=== PATIENT | female | born 1930 | race Caucasian/White ===

== ENCOUNTER 2019-03-19 16:30 | Emergency (ER) | payer OTHER, MEDICAID ==
[~2019-03-19] VITALS: Ht 157.5 cm; Wt 66.7 kg
[~2019-03-19 16:30] MED LIST: COL100 PO; HEP5I SC; NORCO1 TA2 PO; SYN25 PO; TOP50 PO; TYL325 PO; ZES10 PO
[2019-03-19 16:32] VITALS: Ht 157.5 cm; Wt 66.7 kg
[2019-03-19 21:41] LABS: BASOPHIL % 0.7 % (0-2); PLATELET COUNT 262 x10^3mcL (130-400); RED CELL DISTRIBUTION WIDTH 13.6 % (11.5-14.5)
[2019-03-19 21:42] LABS: UA SPECIFIC GRAVITY 1.025 (1.005-1.035); microscopic required? YES; urine erythrocyte 2+ (NEGATIVE)
[2019-03-19 21:54] LABS: CALCIUM 8.9 mg/dL (8.5-10.1); CHLORIDE SERUM 103 mmol/L (98-107); CREATININE SERUM 0.9 mg/dL (0.6-1.0); GLUCOSE SERUM 102 mg/dL (74-106); POTASSIUM SERUM 3.8 mmol/L (3.5-5.1); SODIUM SERUM 138 mmol/L (136-145)
[2019-03-19 21:58] LABS: ALBUMIN 3.7 g/dL (3.4-5.0); ALKALINE PHOSPHATASE 103 U/L (46-116); ALT/SGPT 22 U/L (14-59); AST/SGOT 21 U/L (15-37); BILIRUBIN TOTAL 0.39 mg/dL (0.20-1.00); LIPASE 81 IU/L (73-393); TOTAL PROTEIN, SERUM 7.6 g/dL (6.4-8.2)
[2019-03-20 00:20] VITALS: BP 142/51
== END 2019-03-20 00:58 | disposition home or self-care (01) ==
LOC: ED 16:30
PROVIDERS: Emergency Medicine
DX: E86.0 Dehydration (principal); R53.1 Weakness; R42 Dizziness and giddiness; I10 Essential (primary) hypertension; F32.9 Major depressive disorder, single episode, unspecified; E03.9 Hypothyroidism, unspecified; Z96.651 Presence of right artificial knee joint
CPT/HCPCS: J7030; Q0092

== ENCOUNTER 2019-11-08 05:41 | Inpatient (IN) | payer OTHER ==
[~2019-11-08] VITALS: Ht 160 cm; Wt 67.8 kg
[2019-11-08 05:48] VITALS: Ht 160 cm; Wt 67.8 kg
[2019-11-08 06:50] LABS: microscopic required? YES; urine erythrocyte 2+ (NEGATIVE)
[2019-11-08 06:54] LABS: BASOPHIL % 0.6 % (0-2); PLATELET COUNT 239 x10^3mcL (130-400); RED CELL DISTRIBUTION WIDTH 13.8 % (11.5-14.5)
[2019-11-08 07:29] LABS: CHLORIDE SERUM 107 mmol/L (98-107); CREATININE SERUM 0.8 mg/dL (0.6-1.0); GLUCOSE SERUM 103 mg/dL (74-106); POTASSIUM SERUM 4.2 mmol/L (3.5-5.1); SODIUM SERUM 142 mmol/L (136-145)
[2019-11-08 07:32] LABS: ALBUMIN 3.6 g/dL (3.4-5.0); ALKALINE PHOSPHATASE 90 U/L (46-116); ALT/SGPT 20 U/L (14-59); AST/SGOT 18 U/L (15-37); BILIRUBIN TOTAL 0.5 mg/dL (0.20-1.00); LIPASE 58 IU/L (73-393); TOTAL PROTEIN, SERUM 7.6 g/dL (6.4-8.2)
--- NOTE | 2019-11-08 08:01 | NUR ---
PT TAKEN TO CT AT THIS TIME VIA SURAJ
--- NOTE | 2019-11-08 08:23 | NUR ---
RECEIVED REPORT FROM BAUDILIO RAMOS. PT IN CT AT THIS TIME
--- NOTE | 2019-11-08 08:37 | NUR ---
LAB AT BEDSIDE
--- NOTE | 2019-11-08 08:42 | NUR ---
PT AAOX4; BREATHING E/U. NAD NOTED. SON IS AT BEDSIDE
--- NOTE | 2019-11-08 09:49 | NUR ---
DR KOLB AT BEDSIDE FOR EVAL
--- NOTE | 2019-11-08 10:50 | NUR ---
IVF INFUSING ORDERED
--- NOTE | 2019-11-08 11:39 | NUR ---
REPORT GIVEN TO ABDI
[2019-11-08] MEDS ORDERED: CITALOPRAM HYDR40 M1 PO (12:25)
[2019-11-08] MEDS ORDERED: GOOD SENSE ASPI81 M3 PO (12:25)
[2019-11-08] MEDS ORDERED: LISINOPRIL10 MG (12:25)
[2019-11-08] MEDS ORDERED: LIPI10 PO (12:25)
[2019-11-08] MEDS ORDERED: AMLODIPINE BESYL5 M2 PO (12:25)
--- NOTE | 2019-11-08 13:00 | NUR ---
RECEIVED FROM ER AWAKE, ALERT AND ORIENTED. ROBINSON TAYLOR BUT ABLE TO COMMUNICATE. [place] ISLANDER SPEAKING ONLY, FAMILY AT BEDSIDE ASSISTING WITH TRANSLATION. PT RECEIVED IN NO ACUTE RESP. DISTRESS. BP ELEVTED, 187/81 AND IN PAIN 05/26. NR DOMINGO MUTUC AT BEDSUIDE AND AWARE OF ELEVETED BP. WILL MEDICATE FOR PAIN ORDERED. PT CAME IN WITH C/O ABD, PAIN WITH DYSURIA.PT ORIENTED TO ROOM, CALL LIGHT WITHIN REACH AND PT INSTRUCTED TO CALL FOR ASSISTANCE NEEDED. IVF INFUSING WELL AND SITE CLEAR. WILL CONTINUE WITH PLAN OF CARE.
[2019-11-08 13:12] VITALS: BP 187/81
--- NOTE | 2019-11-08 13:51 | NUR ---
PT C/O ABD. PAIN 08/26. MEDICATED WITH TORADOL IVP PER ORDER.
[2019-11-08 17:04] VITALS: BP 132/50
--- NOTE | 2019-11-08 18:27 | NUR ---
REMAINS IN NO DISTRESS. AWAKE AND ALERT. KELLI. WELL WITH CLEAR LIQ. DIET, NO C/O N/V NOR ABD. DISCOMFORT.VS REMAINS WNL. IVF INFUSING WELL AND SITE CLEAR. CALL LIGHT WITHIN REACH. WILL BE ENDORSED TO INCOMING SHIFT.
--- NOTE | 2019-11-08 19:54 | NUR ---
RECEIVED PATIENT IN BED AWAKE, ALERT AND ORIENTED WITH NO C/O ABDOMINAL PAIN AT THIS TIME, PATIENT MEDICATED EARLIER FOR PAIN BY AM SHIFT. SON AT BEDSIDE. RESPIRATION EVEN AND NONLABOR SATTING AT 98% RA. ABDOMEN ROUND, OBESE AND NONTENDER WITH ACTIVE BS. INSTRUCTION ON NPO PROVIDED AND PATIENT VERBALIZED UNDERSTANDING. WILL CONTINUE TO MONITOR.
--- NOTE | 2019-11-08 20:10 | NUR ---
CONSENT FOR SURGERY SIGNED BY SON, INSTRUCTION ON NPO PROVIDED TO PATIENT AND PATIENT VERBALIZED UNDERSTANDING.
[2019-11-08 20:25] VITALS: BP 120/61
--- NOTE | 2019-11-08 23:32 | NUR ---
APPEAR TO BE SLEEPING THIS TIME BREATHING EASY AND NONLABOR. WILL CONTINUE TO MONITOR.
--- NOTE | 2019-11-09 05:14 | NUR ---
CHECKED AT INTERVALS FOR NEEDS AND SAFETY. KEPT ON NPO. HAD BM X2 SOFT IN LARGE AMOUNT. ALL NEEDS ATTENDED.
[2019-11-09 05:35] VITALS: BP 130/88
[2019-11-09 06:29] LABS: CARBON DIOXIDE 27.4 mmol/L (21-32); CHLORIDE SERUM 107 mmol/L (98-107); CREATININE SERUM 0.8 mg/dL (0.6-1.0); GLUCOSE SERUM 109 mg/dL (74-106); POTASSIUM SERUM 5.2 mmol/L (3.5-5.1); SODIUM SERUM 141 mmol/L (136-145)
[2019-11-09 06:37] LABS: BASOPHIL % 0.1 % (0-2); PLATELET COUNT 250 x10^3mcL (130-400); RED CELL DISTRIBUTION WIDTH 13.7 % (11.5-14.5)
--- NOTE | 2019-11-09 07:27 | NUR ---
RECEIVED PATIENT. ALERT, AND AWAKE. NO RESP DISTRESS NOTED. NO C/O PAIN AT THIS TIME. [place] SPEAKING ONLY. NPO SINCE MIDNIGHT FOR SCHEDULED LAP REJI TODAY 11/09/2019. D5 1/2NS RUNNING AT 40 ML/HR TO LAC. NO INFILTRATION NOTED. IV INTACT AND PATENT. SAFETY PRECAUTION IN PLACE. CALL LIGHT WITHIN REACH. WILL CONTINUE TO MONITOR.
--- NOTE | 2019-11-09 07:35 | NUR ---
PATIENT WENT DOWN TO OR FOR LAP REJI PROCEDURE VIA BED AND OR NURSE. WILL WAIT FOR RETURN TO UNIT.
[2019-11-09 08:34] VITALS: BP 140/46
--- NOTE | 2019-11-09 10:24 | NUR ---
RECEIVED PATIENT FROM OR. VITAL SIGNS STABLE. HR 60, O2 SAT 94% ON 4L NC. RR 17, BP 138/60, TEMP 98.6, PAIN 0/10. BANDAIDS TO 4 INCISIONS C/D/I. PATIENT STILL A LITTLE DROWSY, BUT AWAKE AND ALERT. PER OR NURSE, PATIENT WAS UNRESPONSIVE FOR 40 MINS AFTER PROCEDURE, MD IS MAKING A NOTE AND WILL BRING BACK CHART TO UNIT SHORTLY. NO ACUTE RESP DISTRESS NOTED. SAFETY PRECAUTION IN PLACE. FAMILY AT BEDSIDE. CALL LIGHT WITHIN REACH. WILL CONTINUE TO MONITOR.
--- NOTE | 2019-11-09 12:25 | NUR ---
PATIENT IN BED, [place]. AWAKE, ALERT. FAMILY AT BEDSIDE. REMAINS ON 4L NC. NO ACUTE RESP DISTRESS NOTED. NO C/O PAIN AT THIS TIME. IV INTACT AND PATENT. NO INFILTRATION NOTED. SAFETY PRECAUTION IN PLACE. SCD IN PLACE. CALL LIGHT WITHIN REACH. WILL CONTINUE TO MONITOR.
[2019-11-09 12:39] VITALS: BP 154/61
--- NOTE | 2019-11-09 15:23 | NUR ---
PATIENT SEEN AMBULATING IN THE HALLWAY WITH PT WITH WALKER. TOLERATING WELL. NO C/O PAIN. NO RESP DISTRESS NOTED. FALL PRECAUTION IN PLACE. WILL CONTINUE TO MONITOR.
[2019-11-09 16:45] VITALS: BP 143/50
--- NOTE | 2019-11-09 17:30 | NUR ---
PATIENT SEEN AMBULATING TO THE RESTROOM. NO ACUTE RESP DISTRESS NOTED. NO C/O PAIN. FLAKE DRIER ASSISTED PATIENT TO GO TO THE RESTROOM. PATIENT WALKS SLOW BUT AMBULATORY. SAFETY PRECAUTION IN PLACE. CALL LIGHT WITHIN REACH. FAMILY AT BEDSIDE. IV INTACT AND PATENT. WILL CONTINUE TO MONITOR.
--- NOTE | 2019-11-09 18:33 | NUR ---
SPOKE WITH LUCAS CALDWELL REGARDING POTASSIUM LEVEL 5.2. PER JAVI, THAT IS FINE. NO NEW ORDERS AT THIS TIME. WILL CONTINUE TO MONITOR PATIENT.
--- NOTE | 2019-11-09 18:34 | NUR ---
PATIENT IN BED. NO ACUTE RESPIRATORY DISTRESS NOTED. REMAINS ON NASAL CANNULA 1L FOR COMFORT. NO C/O PAIN AT THIS TIME. PATIENT RESTING COMFORTABLY IN BED. IV INTACT AND PATENT, NO INFILTRATION NOTED. SCD IN PLACE. SAFETY PRECAUTION IN PLACE. FAMILY AT BEDSIDE. HOB ELEVATED. CALL LIGHT WITHIN REACH. BANDAIDS INTACT, C/D/I. WILL WNDORSE CARE TO LAY MIDWIFE NURSE.
--- NOTE | 2019-11-09 19:40 | NUR ---
RECEIVED REPORT FROM DAY SHIFT RN. PT RESTING IN BED. AA&O X4. NO SOB ON O2 1L VIA NC. BREATHING EVEN AND UNLABORED. NO C/O N/V/ABD PAIN AT THIS TIME. S/P LAP REJI. NO BM YET POST OP. PT STATES BURPING. IV TO LAC, INATCT. ABD INCISIONS X4 COVERED WITH BANDAID. SAFETY MEASURES IN PLACE. BED IN LOWEST POSITION. SIDE RAILS UP X2. INSTRUCTED PT TO USE THE CALL LIGHT FOR ASSISTANCE. CALL LIGHT WITHIN REACH. DAUGHTER AT BEDSIDE.
[2019-11-09 21:35] VITALS: BP 130/49
[2019-11-10 06:08] VITALS: BP 142/51
[2019-11-10 06:51] LABS: CALCIUM 9.3 mg/dL (8.5-10.1); CARBON DIOXIDE 29.4 mmol/L (21-32); CHLORIDE SERUM 109 mmol/L (98-107); CREATININE SERUM 0.8 mg/dL (0.6-1.0); GLUCOSE SERUM 109 mg/dL (74-106); SODIUM SERUM 143 mmol/L (136-145)
--- NOTE | 2019-11-10 06:56 | NUR ---
PT RESTED IN LONG INTERVALS DURING SHIFT. BREATHING EVEN AND UNLABORED ON ROOM AIR. NO C/O N/V/ABD PAIN. PT STATES MILD ABD DISCOMFORT, TOLERABLE. REFUSED PAIN MED. PT HAD EPISODES OF INCONTINENCE. PT STATES PASSING GAS. PT GOT UP AND SAT ON THE CHAIR WITH ASSIST. SAFETY MEASURES MAINTAINED. CALL LIGHT WITHIN REACH.
[2019-11-10 07:39] LABS: BASOPHIL % 0.2 % (0-2); PLATELET COUNT 221 x10^3mcL (130-400); RED CELL DISTRIBUTION WIDTH 13.4 % (11.5-14.5)
--- NOTE | 2019-11-10 07:49 | NUR ---
RECEIVED PATIENT FROM RICHARD PONCE. PATIENT SEEN AMBULATING TO BR, NO COMPLAINTS OF PAIN. SPOKE WITH PATIENT ABOUT MORNING MEDICATIONS AND PATIENT AGREES. WILL AWAIT FOR DR CAMPOS TO COME SPEAK WITH PATIENT. CALL LIGHT IN REACH.
[2019-11-10 08:53] VITALS: BP 141/44
[2019-11-10 12:28] VITALS: BP 125/47
[2019-11-10 16:53] VITALS: BP 139/46
--- NOTE | 2019-11-10 17:30 | NUR ---
PATIENT SEEN SEATED UP TO CHAIR. NO COMPLAINTS AT THIS TIME. FAMILY AT BEDSIDE. STILL NO BM AT THIS TIME. WILL ENDORSE TO ONCOMING NURSE.
--- NOTE | 2019-11-10 19:25 | NUR ---
RECEIVED PT RESTING IN BED, NO ACUTE DISTRESS NOTED. PT S/P LAP APPY (11/09), ABD INCISION X4 COVERED IN BANDAIDS, CDI. BOWEL SOUNDS ACTIVE X 4 QUAD, NO BM SINCE SURGERY. PT REPORTS PASSING GAS. PT AFOGNAK BILAT. MEDSURG PT, DENIES CP. PULSES PALPABLE BILAT, DENIES NUMBNESS/TINGLING IN FEET. RESP EVEN AND UNLABORED ON RA, DENIES SOB. IS AT BEDSIDE, PT VOIDS FREELY, UA (+) ON ROCEPHIN. AMB W/ ASSIST. PT ORDERED. SKIN INTACT OTHERWISE THE ABD INCISIONS DESCRIBED. PT REPORTS PAIN UNDER CONTROL. IV SITE TO THE LT HAND, SALINE LOCKED. NO REDNESS, SWELLING OR PAIN NOTED. ALL COMFORT AND SAFELY MEASURES PROVIDED FOR, CALL LIGHT WITHIN REACH, BED IN LOWEST POSITION, WILL CONTINUE TO MONTIOR.
[2019-11-10 20:15] VITALS: BP 136/61
--- NOTE | 2019-11-11 | NUR ---
UPON ASSESSMENT OF PT, PT SEEN RESTING IN BED W/ EYES CLOSED, NO S/S OF PAIN NOTED. IV SITE REMAINS PATENTT TO LT HAND, SALINE LOCKED AT THIS TIME. ENVIRONMENT FREE OF CLUTTER, CALL LIGHT WITHIN REACH, BED IN LOWEST POSITION, WILL CONTINUE TO MONITOR.
[2019-11-11 04:48] VITALS: BP 127/47
--- NOTE | 2019-11-11 05:05 | NUR ---
PT RESTED IN INTERVALS DURING SHIFT, NO ACUTE CHANGES OCCURRING OVERNIGHT. PT MEDICATED X1 WITH TORADOL FOR SURGICAL SITE PAIN, DSG TO ABD REMAINS CDI. PT DENIES BM DURING SHIFT, PT HEARD BURPING AND PASSING GAS, WILL ENCOURAGE PT TO AMBULATE TO HELP DECREASE RISK OF POST OP COMPLICATIONS. INCENTIVE SPIROMETER AT BEDSIDE. IV SITE REMAINS PATENT TO LT HAND, NO REDNESS, SWELLING OR PAIN NOTED. ALL COMFORT AND SAFETY MEASURES PROVIDED FOR, CALL LIGHT WITHIN REACH, BED IN LOWEST POSITION, WILL CONTINUE TO MONITOR.
[2019-11-11 06:39] LABS: CALCIUM 8.9 mg/dL (8.5-10.1); CARBON DIOXIDE 29.4 mmol/L (21-32); CHLORIDE SERUM 106 mmol/L (98-107); CREATININE SERUM 0.7 mg/dL (0.6-1.0); GLUCOSE SERUM 83 mg/dL (74-106); POTASSIUM SERUM 3.8 mmol/L (3.5-5.1); SODIUM SERUM 141 mmol/L (136-145)
[2019-11-11 06:50] LABS: BASOPHIL % 0.6 % (0-2); PLATELET COUNT 206 x10^3mcL (130-400); RED CELL DISTRIBUTION WIDTH 13.5 % (11.5-14.5)
--- NOTE | 2019-11-11 07:30 | NUR ---
RECEIVED PATIENT RESTING IN BED, NO ACUTE DISTRESS NOTED. PATIENT DENIES PAIN. PATIENT A/OX4, DENIES HEADACHE. PATIENT IS [place] BILATERALLY. DENIES SOB, ON ROOM AIR. FINE CRACKLES NOTED TO BILATERAL BASES. PATIENT DENIES PASSING BM, BOWEL SOUNDS ACTIVEX4, REPORTS PASSING GAS. ABDOMINAL INCISIONX4, CDI & NO DRAINAGE NOTED. INCISIONS COVERED WITH BANDAID. IV TO LEFT HAND SALINE, CDI&PATENT. CALL LIGHT WITHIN REACH, BED IN LOW POSITION. WILL CONTINUE TO MONITOR.
--- NOTE | 2019-11-11 07:46 | NUR ---
ALL CARE ENDORSED TO DAYSHIFT NURSE, ALL QUESTIONS AND CONCERNS ADDRESSED, ALL COMFORT AND SAFETY MEASURES PROVIDED FOR, CALL LIGHT WITHIN REACH, BED IN LOWEST POSITION.
[2019-11-11 09:00] VITALS: BP 148/53
--- NOTE | 2019-11-11 09:20 | NUR ---
PATIENT WAS C/O ABDOMINAL PAIN 03/26, PATIENT STATED PAIN INCREASES WITH MOVEMENT. MEDICATED PATIENT WITH TORADOL PER PROTOCOL(SEE EMAR), REPOSITION PATIENT FOR COMFORT. CALL LIGHT WITHIN REACH, BED IN LOW POSITION, WILL CONTINUE TO MONITOR AND MANAGE PAIN.
[2019-11-11] MEDS ORDERED: MOT800 PO (10:45)
[2019-11-11 11:54] VITALS: BP 132/46
--- NOTE | 2019-11-11 15:07 | NUR ---
PHYSICAL THERAPY DAILY NOTES CO-SIGN All documentation done by the Mail Handler Sorter for 11/11/19 has been reviewed. I agree with the documentation. Reviewed/Co-Signed by: Rosa Carter PT Documentation Done by:ELDON JOHNS PTA
[2019-11-11 15:12] VITALS: BP 132/46
--- NOTE | 2019-11-11 16:40 | NUR ---
PATIENT WAS D/C HOME TODAY, PATIENT RECEIVED COPY OF D/C INSTRUCTIONS, PATIENT AND FAMILY UNDERSTAND AND AGREE WITH D/C INSRUCTIONS AND PLAN OF CARE, INCLUDING MEDICATIONS AND FOLLOW UP WITH PCP. ALL QUESTIONS AND CONCERNS ADDRESSED. ARMBAND REMOVED, IV TO LEFT HAND REMOVED, CATH INTACT. PATIENT TAKEN DOWN VIA WHEELCHAIR BY HYDROMETEOROLOGIST.
== END 2019-11-11 16:40 | disposition home or self-care (01) | DRG 418 ==
LOC: ED 05:41 → EDBEDREQ 11:00 → MU 11:00
PROVIDERS: Emergency Medicine; General Practice; Surgery; ADMIT Family Medicine
PROC: 0FT44ZZ Resection of Gallbladder, Percutaneous Endoscopic Approach (ICD-10-PCS; principal; 2019-11-09 08:00)
DX: K80.20 Calculus of gallbladder without cholecystitis without obstruction (principal); N39.0 Urinary tract infection, site not specified; F32.9 Major depressive disorder, single episode, unspecified; E03.9 Hypothyroidism, unspecified; Z96.651 Presence of right artificial knee joint; Z79.82 Long term (current) use of aspirin
CPT/HCPCS: 90658; 90732; 94150; 97110-GP; 97112-GP; 97530-GP; G0378; J0330; J0690; J0696; J1885; J2270; J2405; J2704; J2710; J3010; J3490; J7120; Q0092; Q9967